=== PATIENT | female | born 1965 | race Caucasian/White ===

== ENCOUNTER 2018-07-14 10:50 | Emergency (ER) | payer OTHER ==
[2018-07-14] MEDS ORDERED: MORPHINE SULFATE 4 MG/ML SYRINGE IV STA (11:09)
[2018-07-14] MEDS ORDERED: SODIUM CHLORIDE 0.9% 500 ML IV STA (11:09)
--- NOTE | 2018-07-14 11:15 | ED ---
General Adult HPI - General Chief complaint: Abdominal Pain Stated complaint: Abd Pain Time Seen by Provider: 07/14/18 11:02 Source: patient Mode of arrival: wheelchair Limitations: no limitations - History of Present Illness Initial comments: 53-year-old female with no chronic medical problems presents for evaluation of sudden onset of lower abdominal pain and pain into her bilateral thighs. Patient states this began approximately 30 minutes prior to arrival. She states she had a normal bowel movement this morning. Denies any preceding symptoms. No vomiting. No fever or chills. Pain is moderate to severe. Past surgical history of section remotely. Patient is not on any daily medication. Denies pain into her lower legs. Pain is just in her proximal thighs and lower abdomen. - Related Data Allergies Allergy/AdvReac Type Severity Reaction Status Date / Time No Known Allergies Allergy Verified 07/14/18 10:57 Review of Systems ROS Statement: Those systems with pertinent positive or pertinent negative responses have been documented in the HPI. ROS Other: All systems not noted in ROS Statement are negative. Past Medical History Past Medical History: No Reported History History of Any Multi-Drug Resistant Organisms: None Reported Past Surgical History: Section Past Psychological History: No Psychological Hx Reported Smoking Status: Current every day smoker Past Alcohol Use History: Occasional Past Drug Use History: Marijuana General Exam Limitations: no limitations General appearance: alert, in no apparent distress Head exam: Present: atraumatic, normocephalic Eye exam: Present: normal appearance, PERRL, EOMI ENT exam: Present: normal exam Neck exam: Present: normal inspection. Absent: tenderness, meningismus Respiratory exam: Present: normal lung sounds bilaterally. Absent: respiratory distress Cardiovascular Exam: Present: normal rhythm, bradycardia GI/Abdominal exam: Present: soft, distended, tenderness (Very mild lower abdominal tenderness). Absent: guarding, rebound Extremities exam: Present: normal inspection, other (Bilateral femoral pulses 2+ , bilateral DP pulses present) Neurological exam: Present: alert, oriented X3, CN II-XII intact Skin exam: Present: warm, diaphoretic. Absent: cyanosis Course Vital Signs 07/14/18 07/14/18 07/14/18 10:51 11:14 12:29 Temperature 97.7 F Pulse Rate 50 L 74 Respiratory 22 16 Rate Blood Pressure 140/102 100/53 O2 Sat by Pulse 98 100 Oximetry - Reevaluation(s) Reevaluation #1: 07/14/18 14:04 On reevaluation, patient is feeling better, pain is nearly completely resolved. She is well-appearing with stable vitals. EKG Findings - EKG Comments: EKG Findings:: EKG: Sinus rhythm with low voltage QRS, rate of 76, MO interval 156, QRS duration 70, QTC 468, no ST segment elevation or depression Medical Decision Making - Medical Decision Making 53-year-old female presenting with sudden onset lower abdominal pain. Patient has minimal tenderness on exam. Distal pulses intact. Workup in the emergency department reveals normal CBC, normal CMP, normal lactic acid, urinalysis shows no signs of infection. After IV pain medication patient is feeling better. CT of the abdomen is obtained, only significant finding is a thickened endometrial stripe, this does not account for the patient's pain, no other acute findings. She will follow-up with her primary care physician, she is informed of the need for an outpatient uterine ultrasound. Diagnosis: Abdominal pain-resolved - Lab Data Result diagrams: 07/14/18 11:21 07/14/18 11:21 Lab Results 07/14/18 07/14/18 07/14/18 Range/Units 11:21 11:21 11:21 WBC 9.7 (3.8-10.6) k/uL RBC 4.18 (3.80-5.40) m/uL Hgb 13.5 (11.4-16.0) gm/dL Hct 42.1 (34.0-46.0) % MCV 100.7 H (80.0-100.0) fL MCH 32.4 (25.0-35.0) pg MCHC 32.2 (31.0-37.0) g/dL RDW 13.1 (11.5-15.5) % Plt Count 260 (150-450) k/uL Neutrophils % 58 % Lymphocytes % 28 % Monocytes % 8 % Eosinophils % 4 % Basophils % 1 % Neutrophils # 5.6 (1.3-7.7) k/uL Lymphocytes # 2.7 (1.0-4.8) k/uL Monocytes # 0.8 (0-1.0) k/uL Eosinophils # 0.4 (0-0.7) k/uL Basophils # 0.1 (0-0.2) k/uL PT (9.0-12.0) sec INR (<1.2) APTT (22.0-30.0) sec Sodium 139 (137-145) mmol/L Potassium 3.8 (3.5-5.1) mmol/L Chloride 106 (98-107) mmol/L Carbon Dioxide 26 (22-30) mmol/L Anion Gap 7 mmol/L BUN 14 (7-17) mg/dL Creatinine 0.65 (0.52-1.04) mg/dL Est GFR (CKD-EPI)AfAm >90 (>60 ml/min/1.73 sqM) Est GFR (CKD-EPI)NonAf >90 (>60 ml/min/1.73 sqM) Glucose 144 H (74-99) mg/dL Plasma Lactic Acid Parveen 1.5 (0.7-2.0) mmol/L Calcium 8.9 (8.4-10.2) mg/dL Total Bilirubin 0.3 (0.2-1.3) mg/dL AST 19 (14-36) U/L ALT 31 (9-52) U/L Alkaline Phosphatase 66 (38-126) U/L Total Protein 6.7 (6.3-8.2) g/dL Albumin 3.7 (3.5-5.0) g/dL Amylase 66 (30-110) U/L Lipase 57 (23-300) U/L Urine Color Urine Appearance (Clear) Urine pH (5.0-8.0) Ur Specific [place] (1.001-1.035) Urine Protein (Negative) Urine Glucose (UA) (Negative) Urine Ketones (Negative) Urine Blood (Negative) Urine Nitrite (Negative) Urine Bilirubin (Negative) Urine Urobilinogen (<2.0) mg/dL Ur Leukocyte Esterase (Negative) Urine RBC (0-5) /hpf Urine WBC (0-5) /hpf Ur Squamous Epith Cells (0-4) /hpf Urine Mucus (None) /hpf 07/14/18 07/14/18 Range/Units 11:21 12:42 WBC (3.8-10.6) k/uL RBC (3.80-5.40) m/uL Hgb (11.4-16.0) gm/dL Hct (34.0-46.0) % MCV (80.0-100.0) fL MCH (25.0-35.0) pg MCHC (31.0-37.0) g/dL RDW (11.5-15.5) % Plt Count (150-450) k/uL Neutrophils % % Lymphocytes % % Monocytes % % Eosinophils % % Basophils % % Neutrophils # (1.3-7.7) k/uL Lymphocytes # (1.0-4.8) k/uL Monocytes # (0-1.0) k/uL Eosinophils # (0-0.7) k/uL Basophils # (0-0.2) k/uL PT 9.9 (9.0-12.0) sec INR 1.0 (<1.2) APTT 22.8 (22.0-30.0) sec Sodium (137-145) mmol/L Potassium (3.5-5.1) mmol/L Chloride (98-107) mmol/L Carbon Dioxide (22-30) mmol/L Anion Gap mmol/L BUN (7-17) mg/dL Creatinine (0.52-1.04) mg/dL Est GFR (CKD-EPI)AfAm (>60 ml/min/1.73 sqM) Est GFR (CKD-EPI)NonAf (>60 ml/min/1.73 sqM) Glucose (74-99) mg/dL Plasma Lactic Acid Parveen (0.7-2.0) mmol/L Calcium (8.4-10.2) mg/dL Total Bilirubin (0.2-1.3) mg/dL AST (14-36) U/L ALT (9-52) U/L Alkaline Phosphatase (38-126) U/L Total Protein (6.3-8.2) g/dL Albumin (3.5-5.0) g/dL Amylase (30-110) U/L Lipase (23-300) U/L Urine Color Light Yellow Urine Appearance Clear (Clear) Urine pH 6.5 (5.0-8.0) Ur Specific [place] 1.048 H (1.001-1.035) Urine Protein Negative (Negative) Urine Glucose (UA) Negative (Negative) Urine Ketones Negative (Negative) Urine Blood Trace H (Negative) Urine Nitrite Negative (Negative) Urine Bilirubin Negative (Negative) Urine Urobilinogen <2.0 (<2.0) mg/dL Ur Leukocyte Esterase Negative (Negative) Urine RBC 1 (0-5) /hpf Urine WBC 2 (0-5) /hpf Ur Squamous Epith Cells 2 (0-4) /hpf Urine Mucus Rare H (None) /hpf Disposition Clinical Impression: Abdominal pain Disposition: HOME SELF-CARE Condition: Good Instructions: Abdominal Pain (ED) Is patient prescribed a controlled substance at d/c from ED?: No Referrals: None,Stated [Primary Care Provider] - 1-2 days José Miguel Chan MD [REFERRING] - 1-2 days Time of Disposition: 14:07
[2018-07-14 11:44] LABS: Basophils # (A) 0.1 k/uL (0-0.2); Basophils % (A) 1 %; Eosinophils # (A) 0.4 k/uL (0-0.7); Eosinophils % (A) 4 %; HCT 42.1 % (34.0-46.0); HGB 13.5 gm/dL (11.4-16.0); Lymphocytes # (A) 2.7 k/uL (1.0-4.8); Lymphocytes % (A) 28 %; MCH 32.4 pg (25.0-35.0); MCHC 32.2 g/dL (31.0-37.0); MCV 100.7 fL (80.0-100.0); Mean Platelet Volume 7.1; Monocytes # (A) 0.8 k/uL (0-1.0); Monocytes % (A) 8 %; Neutrophils # (A) 5.6 k/uL (1.3-7.7); Neutrophils % (A) 58 %; Platelet Count 260 k/uL (150-450); RBC 4.18 m/uL (3.80-5.40); RDW 13.1 % (11.5-15.5); WBC 9.7 k/uL (3.8-10.6)
[2018-07-14 11:48] LABS: Partial Thromboplastin Time 22.8 sec (22.0-30.0); Prothrombin Time 9.9 sec (9.0-12.0)
[2018-07-14 11:52] LABS: ALT 31 U/L (9-52); AST 19 U/L (14-36); Albumin 3.7 g/dL (3.5-5.0); Alkaline Phosphatase 66 U/L (38-126); Amylase 66 U/L (30-110); Anion Gap 7 mmol/L; Blood Urea Nitrogen 14 mg/dL (7-17); Calcium 8.9 mg/dL (8.4-10.2); Carbon Dioxide 26 mmol/L (22-30); Chloride 106 mmol/L (98-107); Glucose 144 mg/dL (74-99); Lipase 57 U/L (23-300); Potassium 3.8 mmol/L (3.5-5.1); Sodium 139 mmol/L (137-145); Total Bilirubin 0.3 mg/dL (0.2-1.3); Total Protein 6.7 g/dL (6.3-8.2)
--- NOTE | 2018-07-14 12:09 | CT ---
EXAMINATION TYPE: CT abdomen pelvis w con DATE OF EXAM: 07/14/2018 REFERENCE: NONE HISTORY: abdominal pain HISTORY: pain REFERENCE: NONE CT DLP: 649.6 mGy Automated exposure control for dose reduction was used. TECHNIQUE: Helical acquisition through the abdomen and pelvis was obtained following the oral ingesti on of without Oral Contrast and following intravenous administration of 100 mL of Isovue 300. The shereen a was reformatted in axial, coronal and sagittal projections. FINDINGS: Visualized portions of the lungs are clear. There is no pleural or pericardial fluid. The heart is not enlarged. Within the abdomen, the liver, spleen and gallbladder are normal. Both adrenal glands are normal. Both kidneys demonstrate function and appear morphologically normal. The pancreas is unremarkable. There is no significant retroperitoneal, iliac or inguinal adenopathy. The bladder is unremarkable. Endometrial stripe is thickened measuring 3 cm. The ovaries are unremarkable. There is no significant diverticular change and there is no radiographic evidence of diverticulitis. The appendix is unremarkable. Small bowel loops are of normal caliber. There is no free fluid and no free air. There is degenerative disc disease and disc space loss at L5-S1. No other bony lesion is seen. IMPRESSION: 1. WIDENED ENDOMETRIAL STRIPE. A NONEMERGENT PELVIC ULTRASOUND BE SUGGESTED. 2. DEGENERATIVE CHANGE WITHIN THE LUMBAR SPINE.
[2018-07-14] MEDS ORDERED: MORPHINE SULFATE 4 MG/ML SYRINGE IVP STA (12:26)
[2018-07-14 12:30] VITALS: RESP 16
[2018-07-14 13:07] LABS: Appearance,Urine Clear (Clear); Bilirubin,Urine Negative (Negative); Blood,Urine Trace (Negative); Color,Urine Light Yellow; Glucose,Urine (UA) Negative (Negative); Ketones,Urine Negative (Negative); Leukocyte Esterase,Urine Negative (Negative); Mucus,Urine Rare /hpf; Nitrite,Urine Negative (Negative); PH, Urine 6.5 (5.0-8.0); Protein,Urine Negative (Negative); RBC,Urine 1 /hpf (0-5); Squamous Epithelial Cell,Urine 2 /hpf (0-4); Urobilinogen,Urine <2.0 mg/dL (<2.0); WBC,Urine 2 /hpf (0-5)
[2018-07-14 13:11] LABS: Specific Gravity,Urine 1.048 (1.001-1.035)
[2018-07-14 14:27] VITALS: BP 120/66; PULSE 77; TEMP 98
== END 2018-07-14 14:20 | disposition home or self-care (01) ==
LOC: EC 10:50
DX: R10.30 Lower abdominal pain, unspecified (principal); M79.651 Pain in right thigh; M79.652 Pain in left thigh; R93.8 Abnormal findings on diagnostic imaging of other specified body structures; F17.200 Nicotine dependence, unspecified, uncomplicated
CPT/HCPCS: 36415; 93005; 80053; 82150; 83605; 83690; 85025; 85610; 85730; 81001; 74177; 99284; 96374; 96376; J2270; Q9967

== ENCOUNTER → 2018-08-21 | Outpatient (CLI) | payer OTHER ==
--- NOTE | 2018-08-22 06:49 | US ---
EXAMINATION TYPE: US transvaginal DATE OF EXAM: 08/21/2018 COMPARISON: CT abdomen pelvis July 14, 2018 CLINICAL HISTORY: N93.[address] x 1.5 months ago. TECHNIQUE: Transvaginal (TV). Date of LMP: 07/29/2018, EXAM MEASUREMENTS: Uterus: 8.6 x 5.4 x 5.2 cm Endometrial Stripe: 0.9 cm Right Ovary: 2.3 x 1.3 x 1.7 cm Left Ovary: 2.7 x 2.2 x 1.7 cm 1. Uterus: Anteverted Heterogenous. Anterior midline cystic appearing lesion = 0.3 x 0.4 x 0.3 cm 2. Endometrium: wnl 3. Right Ovary: follicles seen 4. Left Ovary: dominant follicle 5. Bilateral Adnexa: Prominent vessels seen in adnexa 6. Posterior cul-de-sac: no free fluid Heterogeneous anteverted uterus is present. Technologist paiz 3 mm myometrial simple appearing cysts anteriorly. No free fluid is seen in pelvis. Both ovaries are seen. No suspicious adnexal lesions are present. Prominent left adnexal or ovarian v eins are redemonstrated IMPRESSION: No suspicious thickening of endometrium. Patient noted premenopausal likely accounting fo r interval change from CT. Prominent left-sided draining ovarian veins redemonstrated. Cannot exclude pelvic congestion syndrome.
--- NOTE | 2018-08-22 08:58 | MM ---
Reason for exam: screening (asymptomatic). Baseline mammogram. History: Took hormonal contraceptives for 6 months beginning at age 20. Physical Findings: Nurse did not find any significant physical abnormalities on exam. MG Screening Mammo w CAD Bilateral CC and MLO view(s) were taken. The breast tissue is heterogeneously dense. This may lower the sensitivity of mammography. No suspicious calcifications are seen. Focal asymmetry upper left breast. These results were verbally communicated with the patient and result sheet given to the patient on 08/21/18. ASSESSMENT: Incomplete: need additional imaging evaluation, BI-RAD 0 RECOMMENDATION: Special view mammogram of the left breast.
--- NOTE | 2018-08-22 08:59 | MM ---
Reason for exam: additional evaluation requested from abnormal screening. History: Took hormonal contraceptives for 6 months beginning at age 20. Physical Findings: Breast exam preformed at baseline screening. MG Work Up Mamm w CAD LT Spot compression CC, spot compression MLO, and LM view(s) were taken of the left breast. The breast tissue is heterogeneously dense. This may lower the sensitivity of mammography. There is no discrete abnormality including area of concern. These results were verbally communicated with the patient and result sheet given to the patient on 08/21/18. ASSESSMENT: Negative, BI-RAD 1 RECOMMENDATION: Return to routine screening mammogram schedule for both breasts.
== END | disposition home or self-care (01) ==
LOC: RADMAMWWP 14:43
PROVIDERS: ATTEND Family Medicine
DX: Z12.31 Encounter for screening mammogram for malignant neoplasm of breast (principal); R92.8 Other abnormal and inconclusive findings on diagnostic imaging of breast; N93.8 Other specified abnormal uterine and vaginal bleeding
CPT/HCPCS: 76830; 77065; 77067

== ENCOUNTER → 2018-08-30 | Day surgery (SDC) | payer OTHER ==
[2018-08-21 12:38] VITALS: BMI 27.4
[~2018-08-30] MED LIST: LACTATED RINGERS 1,000 ML IV SCH; LIDOCAINE 1% 20 ML VIAL (10MG/ML) FOR IV START INTRADERMA PRN; LIDOCAINE 1% INJ 10MG/ML (20 ML MDV) ONE; PROPOFOL 10 MG/ML 20 ML VIAL IV ONE
[2018-08-30 10:08] VITALS: TEMP 97.8
--- NOTE | 2018-08-30 10:40 | P.GSHP ---
History of Present Illness H&P Date: 08/30/18 Chief Complaint: Screening colonoscopy This is a 53-year-old female who presents today for screening colonoscopy. Patient denies a significant GI complaints. Past Medical History Past Medical History: No Reported History History of Any Multi-Drug Resistant Organisms: None Reported Past Surgical History: Section Additional Past Surgical History / Comment(s): teeth extraction Past Anesthesia/Blood Transfusion Reactions: No Reported Reaction Smoking Status: Current every day smoker - Past Family History Father Family Medical History: Cancer Mother Family Medical History: Cancer Medications and Allergies Home Medications Medication Instructions Recorded Confirmed Type No Known Home Medications 08/21/18 08/21/18 History Allergies Allergy/AdvReac Type Severity Reaction Status Date / Time No Known Allergies Allergy Verified 08/21/18 12:34 Surgical - Exam Vital Signs Temp Pulse Resp BP Pulse Ox 97.8 F 83 16 109/71 98 08/30/18 10:02 08/30/18 10:02 08/30/18 10:02 08/30/18 10:02 08/30/18 10:02 - General well developed, well nourished - Eyes PERRL - ENT normal pinna - Neck no masses - Respiratory normal expansion - Cardiovascular Rhythm: regular - Abdomen Abdomen: soft, non tender Assessment and Plan Assessment: We'll perform screening colonoscopy.
--- NOTE | 2018-08-30 10:58 | P.OP ---
Date of Procedure: 08/30/18 Preoperative Diagnosis: Screening colonoscopy Postoperative Diagnosis: Tortuous colon Normal colon Procedure(s) Performed: Colonoscopy Anesthesia: MAC Surgeon: Frank Brock Pathology: none sent Condition: stable Disposition: PACU Description of Procedure: Patient's placed on the endoscopy table in the lateral position. She received IV sedation. Digital rectal exam was performed which revealed no abnormalities. The flexible colonoscope was then placed patient anus passed rotator colon. The colon was quite tortuous. The cecum could not be visualized with tortuous the bowel. This point scope withdrawn. In the ascending colon, transverse colon and descending colon appeared normal. The sigmoid colon and rectum was normal. The scope was withdrawn for patient.
[2018-08-30 11:25] VITALS: BP 110/76; PULSE 80; RESP 18
== END | disposition home or self-care (01) ==
LOC: ORWHC2ENDO 09:48
PROVIDERS: ATTEND Surgery
DX: Z12.11 Encounter for screening for malignant neoplasm of colon (principal); F17.200 Nicotine dependence, unspecified, uncomplicated; Q43.8 Other specified congenital malformations of intestine
CPT/HCPCS: 81025; 45378; J2001; J2704

== ENCOUNTER 2021-03-28 08:54 | Observation (INO) | payer OTHER ==
[2021-03-28] MEDS ORDERED: KETOROLAC 15 MG/ML 1 ML VIAL IVP STA (09:25)
--- NOTE | 2021-03-28 09:31 | ED ---
General Adult HPI - General Chief complaint: Skin/Abscess/Foreign Body Stated complaint: foreign body rt arm Time Seen by Provider: 03/28/21 09:03 Source: patient, RN notes reviewed Mode of arrival: ambulatory Limitations: no limitations - History of Present Illness Initial comments: 55-year-old female presents to the emergency room for a chief clinical left arm and hand pain. Patient reports that last night she was carrying wood and a piece punctured her left forearm. States it was about an inch and a half long and she had to pull it out. Patient states that this morning when she woke up her hand was painful. States it is painful to open her hand and to extend her wrist. Patient states it is red and swollen around the area. Patient denies noticing any fevers.Patient has no other complaints at this time including shortness of breath, chest pain, abdominal pain, nausea or vomiting, headache, or visual changes. - Related Data Home Medications Medication Instructions Recorded Confirmed Multivitamins, Thera [Multivitamin 1 tab PO DAILY 03/28/21 03/28/21 (formulary)] Allergies Allergy/AdvReac Type Severity Reaction Status Date / Time No Known Allergies Allergy Verified 03/28/21 09:24 Review of Systems ROS Statement: Those systems with pertinent positive or pertinent negative responses have been documented in the HPI. ROS Other: All systems not noted in ROS Statement are negative. Past Medical History Past Medical History: No Reported History History of Any Multi-Drug Resistant Organisms: None Reported Past Surgical History: Section Additional Past Surgical History / Comment(s): teeth extraction Past Anesthesia/Blood Transfusion Reactions: No Reported Reaction Past Psychological History: No Psychological Hx Reported Smoking Status: Current every day smoker Past Alcohol Use History: Occasional Past Drug Use History: Marijuana - Past Family History Father Family Medical History: Cancer Mother Family Medical History: Cancer General Exam Limitations: no limitations General appearance: alert, in no apparent distress Head exam: Present: atraumatic, normocephalic, normal inspection Eye exam: Present: normal appearance, PERRL, EOMI. Absent: scleral icterus, conjunctival injection, periorbital swelling ENT exam: Present: normal exam, mucous membranes moist Neck exam: Present: normal inspection. Absent: tenderness, meningismus, lymphadenopathy Respiratory exam: Present: normal lung sounds bilaterally. Absent: respiratory distress, wheezes, rales, rhonchi, stridor Cardiovascular Exam: Present: regular rate, normal rhythm, normal heart sounds. Absent: systolic murmur, diastolic murmur, rubs, gallop, clicks Extremities exam: Present: normal capillary refill (Capillary refill less than 2 seconds, radial pulse 2+ left upper extremity), other (Distal volar forearm does have mild edema with erythema. Patient unable to fully open the left hand secondary to pain. No streaking redness. I do not see obvious foreign body. compartments are soft.) Course Vital Signs 03/28/21 03/28/21 03/28/21 08:55 11:00 12:21 Temperature 98.4 F 97.7 F Pulse Rate 75 88 74 Respiratory 18 102 H 18 Rate Blood Pressure 126/82 102/49 108/71 O2 Sat by Pulse 97 99 98 Oximetry Medical Decision Making - Medical Decision Making Vitals are stable. Patient does have some minimal edema overlying the puncture wound. She has pain with extension of the first 3 digits of the left hand. No pain with palpation of the left hand. Patient reports that she did not have pain with extension last night. CBC CMP unremarkable. However CRP is slightly elevated at 10. X-ray of the left forearm was unremarkable, no obvious foreign body. At this time there is concern that there could be an early infection seated to the flexor tendon given she is having pain with extension of the hand. I did discuss this case with orthopedics who are agreeable to admitting with IV antibiotics and nothing by mouth after midnight. Request to keep patient nothing by mouth after midnight. Also request medicine admission if possible. - Lab Data Result diagrams: 03/28/21 10:10 03/28/21 10:10 Lab Results 03/28/21 03/28/21 03/28/21 Range/Units 10:10 10:10 10:10 WBC 7.9 (3.8-10.6) k/uL RBC 4.05 (3.80-5.40) m/uL Hgb 14.3 (11.4-16.0) gm/dL Hct 40.9 (34.0-46.0) % MCV 101.0 H (80.0-100.0) fL MCH 35.4 H (25.0-35.0) pg MCHC 35.0 (31.0-37.0) g/dL RDW 11.8 (11.5-15.5) % Plt Count 244 (150-450) k/uL MPV 7.8 Neutrophils % 65 % Lymphocytes % 21 % Monocytes % 8 % Eosinophils % 5 % Basophils % 1 % Neutrophils # 5.1 (1.3-7.7) k/uL Lymphocytes # 1.6 (1.0-4.8) k/uL Monocytes # 0.6 (0-1.0) k/uL Eosinophils # 0.4 (0-0.7) k/uL Basophils # 0.0 (0-0.2) k/uL PT 10.2 (9.0-12.0) sec INR 0.9 (<1.2) APTT 24.3 (22.0-30.0) sec Sodium 141 (137-145) mmol/L Potassium 4.4 (3.5-5.1) mmol/L Chloride 109 H (98-107) mmol/L Carbon Dioxide 28 (22-30) mmol/L Anion Gap 4 mmol/L BUN 15 (7-17) mg/dL Creatinine 0.60 (0.52-1.04) mg/dL Est GFR (CKD-EPI)AfAm >90 (>60 ml/min/1.73 sqM) Est GFR (CKD-EPI)NonAf >90 (>60 ml/min/1.73 sqM) Glucose 101 H (74-99) mg/dL Plasma Lactic Acid Parveen (0.7-2.0) mmol/L Calcium 9.3 (8.4-10.2) mg/dL Total Bilirubin 0.5 (0.2-1.3) mg/dL AST 28 (14-36) U/L ALT 19 (4-34) U/L Alkaline Phosphatase 76 (38-126) U/L C-Reactive Protein 1.0 H (<1.0) mg/dL Total Protein 6.5 (6.3-8.2) g/dL Albumin 3.9 (3.5-5.0) g/dL 03/28/21 Range/Units 10:10 WBC (3.8-10.6) k/uL RBC (3.80-5.40) m/uL Hgb (11.4-16.0) gm/dL Hct (34.0-46.0) % MCV (80.0-100.0) fL MCH (25.0-35.0) pg MCHC (31.0-37.0) g/dL RDW (11.5-15.5) % Plt Count (150-450) k/uL MPV Neutrophils % % Lymphocytes % % Monocytes % % Eosinophils % % Basophils % % Neutrophils # (1.3-7.7) k/uL Lymphocytes # (1.0-4.8) k/uL Monocytes # (0-1.0) k/uL Eosinophils # (0-0.7) k/uL Basophils # (0-0.2) k/uL PT (9.0-12.0) sec INR (<1.2) APTT (22.0-30.0) sec Sodium (137-145) mmol/L Potassium (3.5-5.1) mmol/L Chloride (98-107) mmol/L Carbon Dioxide (22-30) mmol/L Anion Gap mmol/L BUN (7-17) mg/dL Creatinine (0.52-1.04) mg/dL Est GFR (CKD-EPI)AfAm (>60 ml/min/1.73 sqM) Est GFR (CKD-EPI)NonAf (>60 ml/min/1.73 sqM) Glucose (74-99) mg/dL Plasma Lactic Acid Parveen 0.9 (0.7-2.0) mmol/L Calcium (8.4-10.2) mg/dL Total Bilirubin (0.2-1.3) mg/dL AST (14-36) U/L ALT (4-34) U/L Alkaline Phosphatase (38-126) U/L C-Reactive Protein (<1.0) mg/dL Total Protein (6.3-8.2) g/dL Albumin (3.5-5.0) g/dL Disposition Clinical Impression: Puncture wound, Hand pain, left Disposition: ADMITTED IP TO THIS HOSP Is patient prescribed a controlled substance at d/c from ED?: No Referrals: None,Stated [Primary Care Provider] - 1-2 days Time of Disposition: 12:36
[2021-03-28] MEDS: SODIUM CHLORIDE 0.9% 500 ML 500 ML IV SCH ×2 (10:46→11:26)
[2021-03-28 10:49] LABS: Basophils % (A) 1 %; Eosinophils # (A) 0.4 k/uL (0-0.7); Eosinophils % (A) 5 %; HCT 40.9 % (34.0-46.0); HGB 14.3 gm/dL (11.4-16.0); Lymphocytes # (A) 1.6 k/uL (1.0-4.8); Lymphocytes % (A) 21 %; MCH 35.4 pg (25.0-35.0); Mean Platelet Volume 7.8; Monocytes # (A) 0.6 k/uL (0-1.0); Monocytes % (A) 8 %; Neutrophils # (A) 5.1 k/uL (1.3-7.7); Neutrophils % (A) 65 %; Platelet Count 244 k/uL (150-450); RBC 4.05 m/uL (3.80-5.40); RDW 11.8 % (11.5-15.5); WBC 7.9 k/uL (3.8-10.6)
[2021-03-28 11:02] LABS: INR 0.9 (<1.2); Partial Thromboplastin Time 24.3 sec (22.0-30.0); Prothrombin Time 10.2 sec (9.0-12.0)
--- NOTE | 2021-03-28 11:05 | XR ---
EXAMINATION TYPE: XR forearm RT DATE OF EXAM: 03/28/2021 CLINICAL HISTORY: Puncture injury with pain. TECHNIQUE: Two views of the right forearm are obtained. COMPARISON: None. FINDINGS: There is no acute fracture or dislocation seen in the right radius or ulna. The right elb ow and wrist joints appear within normal limits. There is peripheral IV catheter along the volar surf justice proximal to mid forearm level. No additional radiodense soft tissue foreign body clearly seen. IMPRESSION: As above.
[2021-03-28 11:12] LABS: ALT 19 U/L (4-34); AST 28 U/L (14-36); African American GFR (CKD) >90 (>60 ml/min/1.73 sqM); Albumin 3.9 g/dL (3.5-5.0); Alkaline Phosphatase 76 U/L (38-126); Anion Gap 4 mmol/L; Blood Urea Nitrogen 15 mg/dL (7-17); Calcium 9.3 mg/dL (8.4-10.2); Carbon Dioxide 28 mmol/L (22-30); Chloride 109 mmol/L (98-107); Glucose 101 mg/dL (74-99); Non-African American GFR(CKD) >90 (>60 ml/min/1.73 sqM); Potassium 4.4 mmol/L (3.5-5.1); Sodium 141 mmol/L (137-145); Total Bilirubin 0.5 mg/dL (0.2-1.3); Total Protein 6.5 g/dL (6.3-8.2)
[2021-03-28] MEDS ORDERED: VANCOMYCIN IV PER PHARMACY 1 EACH MISC MISCELLANE PRN (12:33)
[2021-03-28] MEDS ORDERED: PIPERACILLIN-TAZOBACTAM 3.375 GM in SODIUM CHLORIDE 0.9% 100 ML IVPB STA (12:33)
[2021-03-28] MEDS ORDERED: MORPHINE SULFATE 4 MG/ML SYRINGE IV PRN (12:41)
[2021-03-28] MEDS ORDERED: ONDANSETRON 4 MG/2 ML VIAL IVP PRN (12:41)
[2021-03-28] MEDS ORDERED: NALOXONE 0.4 MG/ML 1 ML VIAL IV PRN (12:41)
[2021-03-28] MEDS: SODIUM CHLORIDE 0.9% 1,000 ML IV SCH ×2 (12:56→21:55)
[2021-03-28] MEDS ORDERED: VANCOMYCIN 1,500 MG in SODIUM CHLORIDE 0.9% 250 ML IVPB ONE (13:15)
[2021-03-28] MEDS ORDERED: KETOROLAC 15 MG/ML 1 ML VIAL IVP PRN (14:27)
--- NOTE | 2021-03-28 14:30 | P.HPIM ---
History of Present Illness Patient is a pleasant 55-year-old female came in with pain and redness possible cellulitis and mild abscess in the left forearm plantar aspect after a puncture wound from carrying wood and this happened yesterday. Patient is comparing of moderate pain in that area. Patient was started on vancomycin. Patient was given a dose of Zosyn as well. Orthopedic surgery was consulted. Review of Systems REVIEW OF SYSTEMS: CONSTITUTIONAL: No fever, no malaise, no fatigue. HEENT: No recent visual problems or hearing problems. Denied any sore throat. CARDIOVASCULAR: No chest pain, orthopnea, PND, no palpitations, no syncope. PULMONARY: No shortness of breath, no cough, no hemoptysis. GASTROINTESTINAL: No diarrhea, no nausea, no vomiting, no abdominal pain. NEUROLOGICAL: No headaches, no weakness, no numbness. HEMATOLOGICAL: Denies any bleeding or petechiae. GENITOURINARY: Denies any burning micturition, frequency, or urgency. MUSCULOSKELETAL/RHEUMATOLOGICAL: Denies any joint pain, swelling, or any muscle pain. ENDOCRINE: Denies any polyuria or polydipsia. The rest of the 14-point review of systems is negative. Past Medical History Past Medical History: No Reported History History of Any Multi-Drug Resistant Organisms: None Reported Past Surgical History: Section Additional Past Surgical History / Comment(s): teeth extraction Past Anesthesia/Blood Transfusion Reactions: No Reported Reaction Past Psychological History: No Psychological Hx Reported Smoking Status: Current every day smoker Past Alcohol Use History: Occasional Past Drug Use History: Marijuana - Past Family History Father Family Medical History: Cancer Mother Family Medical History: Cancer Medications and Allergies Home Medications Medication Instructions Recorded Confirmed Type Multivitamins, Thera [Multivitamin 1 tab PO DAILY 03/28/21 03/28/21 History (formulary)] Allergies Allergy/AdvReac Type Severity Reaction Status Date / Time No Known Allergies Allergy Verified 03/28/21 09:24 Physical Exam Vitals: Vital Signs Temp Pulse Resp BP Pulse Ox 03/28/21 13:05 78 16 110/83 99 03/28/21 12:21 74 18 108/71 98 03/28/21 11:00 97.7 F 88 102 H 102/49 99 03/28/21 08:55 98.4 F 75 18 126/82 97 Intake and Output 03/27/21 03/28/21 03/28/21 22:59 06:59 14:59 Other: Weight 72.575 kg PHYSICAL EXAMINATION: GENERAL: The patient is alert and oriented x3, not in any acute distress. Well developed, well nourished. HEENT: Pupils are round and equally reacting to light. EOMI. No scleral icterus. No conjunctival pallor. Normocephalic, atraumatic. No pharyngeal erythema. No thyromegaly. CARDIOVASCULAR: S1 and S2 present. No murmurs, rubs, or gallops. PULMONARY: Chest is clear to auscultation, no wheezing or crackles. ABDOMEN: Soft, nontender, nondistended, normoactive bowel sounds. No palpable organomegaly. MUSCULOSKELETAL: No joint swelling or deformity. EXTREMITIES: No cyanosis, clubbing, or pedal edema. NEUROLOGICAL: Gross neurological examination did not reveal any focal deficits. SKIN: Area of redness with a possible small abscess in the mid 4 forearm plantar aspect. Results CBC & Chem 7: 03/28/21 10:10 03/28/21 10:10 Labs: Abnormal Lab Results - Last 24 Hours (Table) 03/28/21 03/28/21 Range/Units 10:10 10:10 MCV 101.0 H (80.0-100.0) fL MCH 35.4 H (25.0-35.0) pg Chloride 109 H (98-107) mmol/L Glucose 101 H (74-99) mg/dL C-Reactive Protein 1.0 H (<1.0) mg/dL Assessment and Plan Plan: Cellulitis,abscess of the left forearm secondary to puncture wound, patient was started on vancomycin which should cover staph and strep. Continue with IV fluids -Nicotine use: Counseling was provided Heparin GI prophylaxis Pepcid - DVT prophylaxis early ambulation
[2021-03-28] MEDS: VANCOMYCIN 1,250 MG in SODIUM CHLORIDE 0.9% 250 ML IVPB SCH (21:54)
[2021-03-28] MEDS: FAMOTIDINE 20 MG TAB PO SCH (21:54)
[2021-03-29] MEDS: SODIUM CHLORIDE 0.9% 1,000 ML IV SCH (06:00)
[2021-03-29] MEDS: VANCOMYCIN 1,250 MG in SODIUM CHLORIDE 0.9% 250 ML IVPB SCH (06:07)
[2021-03-29 08:08] VITALS: BP 112/73; PULSE 64; RESP 16; TEMP 98.4
--- NOTE | 2021-03-29 09:15 | P.CNOR ---
History of Present Illness - HPI Consult date: 03/29/21 History of present illness: This is a 55-year-old female who is admitted for an infection from a puncture wound to the right forearm. Patient states that she got a piece of wood stuck in her right arm on 03/27/2021, but was able to remove it. Patient states that the next day she noticed pain and difficulty with range of motion of the right hand. Patient states that today she has improvement in her pain and range of motion of the fingers of the right hand. Patient denies any fever/chills, drainage from the wound, numbness, weakness or tingling. Patient denies any significant past medical history. Review of Systems See HPI. Past Medical History Past Medical History: No Reported History History of Any Multi-Drug Resistant Organisms: None Reported Past Surgical History: Section Additional Past Surgical History / Comment(s): teeth extraction Past Anesthesia/Blood Transfusion Reactions: No Reported Reaction Past Psychological History: No Psychological Hx Reported Smoking Status: Current every day smoker Past Alcohol Use History: Occasional Additional Past Alcohol Use History / Comment(s): has smoked for over 30 years; 1-2 ppd Past Drug Use History: Marijuana Additional Drug Use History / Comment(s): occ.; instructed to refrain for at least 24 hours prior to procedure - Past Family History Father Family Medical History: Cancer Mother Family Medical History: Cancer Medications and Allergies Home Medications Medication Instructions Recorded Confirmed Type Multivitamins, Thera [Multivitamin 1 tab PO DAILY 03/28/21 03/28/21 History (formulary)] Allergies Allergy/AdvReac Type Severity Reaction Status Date / Time No Known Allergies Allergy Verified 03/28/21 09:24 Physical Examination On exam patient is resting comfortably distress. Patient is alert and oriented 3. There is a small puncture wound to the volar aspect of the mid right forearm. There is mild tenderness to palpation in this area, but no surrounding erythema, fluctuance, drainage or warmth. Patient has good range of motion of the fingers of the right hand without pain or difficulty. There is no swelling. Sensation is intact. Neurovascular status circulatory status are intact. Results X-rays of the right forearm dated 03/28/2021 are negative for any fracture, dislocation or foreign body. - Labs Labs: Abnormal Lab Results - Last 24 Hours (Table) 03/28/21 03/28/21 Range/Units 10:10 10:10 MCV 101.0 H (80.0-100.0) fL MCH 35.4 H (25.0-35.0) pg Chloride 109 H (98-107) mmol/L Glucose 101 H (74-99) mg/dL C-Reactive Protein 1.0 H (<1.0) mg/dL H & H 03/28/21 Range/Units 10:10 Hgb 14.3 (11.4-16.0) gm/dL Hct 40.9 (34.0-46.0) % Coagulation 03/28/21 Range/Units 10:10 INR 0.9 (<1.2) Result Diagrams: 03/28/21 10:10 03/28/21 10:10 Assessment and Plan (1) Right hand pain Current Visit: Yes Status: Acute Code(s): M79.641 - PAIN IN RIGHT HAND SNOMED Code(s): 22319622 (2) Puncture wound Current Visit: Yes Status: Acute Code(s): T14.8XXA - OTHER INJURY OF UNSPECIFIED BODY REGION, INITIAL ENCOUNTER SNOMED Code(s): 043278650 Plan: 1. Patient reports improvement in her symptoms today after being on IV antibiotics. Patient is afebrile and her white blood cell count is normal. 2. No surgical intervention is planned. Recommend rest, elevation and warm compresses. Recommend that patient be discharged home today on oral antibiotics. Patient is to follow-up with [facility] on 04/01/[facility]21. All questions are answered and patient is receptive to this plan.
[2021-03-29] MEDS: FAMOTIDINE 20 MG TAB PO SCH (09:52)
--- NOTE | 2021-03-29 16:35 | P.DS ---
Providers Date of admission: 03/28/21 12:35 Expected date of discharge: 03/29/21 Attending physician: Cathryn Rodríguez Consults: 03/28/21 12:42 Consult Physician Routine Consulting Provider: Lion Monzon Consult Reason/Comments: concern for flexor tendon infection Do you want consulting provider notified?: Yes Primary care physician: Stated None Hospital Course: Final diagnosis -Cellulitis, abscess of the right forearm secondary to puncture wound -Nicotine use: Counseling was provided -GI prophylaxis -DVT prophylaxis -Full code Discharge disposition Patient is being discharged in a stable condition with guarded prognosis to home. Patient will follow-up with Dr. Chan in the outpatient setting upon discharge. Patient is to follow-up with orthopedics scheduled for this Sunday Dr. Monzon in the clinic. Will continue on oral Keflex 4 times daily for the next 10 days. Total time taken is greater than 35 minutes. Hospital course This is a 55-year-old female was recently admitted with right arm puncture wound from [facility] and was being closely monitored. Patient was initially started on Zosyn along with vancomycin and evaluated by orthopedics recommending close outpatient follow-up in the clinic this Sunday and continued on Keflex 500 mg 4 times daily for the next 10 days. Patient denies any tingling numbness and has full functionality in the right upper extremity. Currently no reports of chest pain, shortness of breath, or palpitations. Patient is afebrile. No reports of nausea or vomiting and patient is tolerating diet. Patient will be discharged home today. On exam vital signs are stable. Cardio S1, S2 are muffled. Respiratory system shows diminished breath sounds at the bases with no wheezing or rhonchi noted. Abdomen is soft and nontender. Nervous system shows no focal deficits. Please refer to medication reconciliation sheet for a list of medications. Patient Condition at Discharge: Stable Plan - Discharge Summary Discharge Rx Participant: No New Discharge Prescriptions: New Cephalexin [Keflex] 500 mg PO Q6H 10 Days #40 cap traMADol HCl [Ultram] 50 mg PO Q6HR PRN 3 Days #12 tab PRN Reason: Pain Continue Multivitamins, Thera [Multivitamin (formulary)] 1 tab PO DAILY Discharge Medication List Multivitamins, Thera [Multivitamin (formulary)] 1 tab PO DAILY 03/28/21 [History] Cephalexin [Keflex] 500 mg PO Q6H 10 Days #40 cap 03/29/21 [Rx] traMADol HCl [Ultram] 50 mg PO Q6HR PRN 3 Days #12 tab 03/29/21 [Rx] Follow up Appointment(s)/Referral(s): José Miguel Chan MD [REFERRING] - 1-2 Days Lion Monzon DO [Doctor of Osteopathic Medicine] - 04/01/21 1:00 pm (Please arrive 15 minutes before appointment time . Bring photo ID and insurance card ) Activity/Diet/Wound Care/Special Instructions: Recommend rest, elevation and warm compresses to the right forearm. Please follow-up with [facility] on 04/01/2021 and call with any questions or concerns, . Activity Limited until follow-up Excuse from work until orthopedics follow-up Continue with antibiotics until finished Continue current diet Discharge Disposition: HOME SELF-CARE
[2021-03-29] MEDS ORDERED: VANCOMYCIN TROUGH DUE 1 EACH MISC MISCELLANE ONE (21:00)
== END 2021-03-29 12:35 | disposition home or self-care (01) ==
LOC: EC 08:54 → 6NMEDSUR 12:35
PROVIDERS: ADMIT Internal Medicine; ATTEND Internal Medicine
DX: L03.113 Cellulitis of right upper limb (principal); L02.413 Cutaneous abscess of right upper limb; S51.831A Puncture wound without foreign body of right forearm, initial encounter; W45.8XXA Other foreign body or object entering through skin, initial encounter; F17.200 Nicotine dependence, unspecified, uncomplicated; Z20.822 Contact with and (suspected) exposure to COVID-19; Z98.891 History of uterine scar from previous surgery; Z80.9 Family history of malignant neoplasm, unspecified
CPT/HCPCS: 96366 ×3; 96375 ×2; 96365; 99284; 36415; 80053; 83605; 85025; 85610; 85730; 86140; 87040; 87635; 73090; G0378 ×2; J2543; J3370 ×2; J2270; J1885

== ENCOUNTER → 2022-08-16 | Outpatient (CLI) | payer OTHER ==
[2022-08-16 22:50] LABS: HCT 39.6 % (37.2-46.3); HGB 12.6 g/dL (12.0-15.0); MCH 32.6 pg (27.0-32.0); MCHC 31.8 g/dL (32.0-37.0); MCV 102.3 fL (80.0-97.0); Mean Platelet Volume 9.8 fL (9.5-12.2); NRBC Per 100 WBC 0 /100 WBCS (0.0-0.0); Platelet Count 299 X 10*3/uL (140-440); RBC 3.87 X 10*6/uL (4.10-5.20); RDW 13.6 % (11.5-14.5); WBC 8.67 X 10*3/uL (4.50-10.00)
[2022-08-16 23:23] LABS: ALT 28 U/L (8-44); AST 22 U/L (13-35); Albumin 4.4 g/dL (3.8-4.9); Albumin/Globulin Ratio 1.61 (1.60-3.17); Alkaline Phosphatase 95 U/L (41-126); BUN/Creat Ratio 20.43 Ratio (12.00-20.00); Blood Urea Nitrogen 16.1 mg/dL (9.0-27.0); Calcium 9.6 mg/dL (8.7-10.3); Carbon Dioxide 27.8 mmol/L (20.0-27.5); Chloride 104 mmol/L (96-109); Globulin 2.7 g/dL (1.6-3.3); Glucose 98 mg/dL (70-110); Non-African American GFR(CKD) 84.5 (60.0-200.0); Potassium 4.5 mmol/L (3.5-5.5); Sodium 141 mmol/L (135-145); Total Bilirubin <0.15 mg/dL (0.30-1.20); Total Protein 7.1 g/dL (6.2-8.2)
== END | disposition home or self-care (01) ==
LOC: LABWHC1 16:14
PROVIDERS: ATTEND Podiatrist Foot & Ankle Surgery
DX: Z01.812 Encounter for preprocedural laboratory examination (principal)
CPT/HCPCS: 36415; 80053; 85027

== ENCOUNTER 2022-09-13 12:39 | Day surgery (SDC) | payer OTHER ==
[~2022-09-13 12:39] MED LIST changes: +DEXAMETHASONE SOD PHOSPHATE 4 MG/ML 1 ML VIAL IV ONE; +HYDROmorphone 0.5 MG/0.5 ML SYRINGE IVP PRN; +LIDOCAINE 1% (10MG/ML) FOR IV START INTRADERMA PRN; -LIDOCAINE 1% 20 ML VIAL (10MG/ML) FOR IV START INTRADERMA PRN; -LIDOCAINE 1% INJ 10MG/ML (20 ML MDV) ONE; +ONDANSETRON 4 MG/2 ML VIAL IVP ONE; -PROPOFOL 10 MG/ML 20 ML VIAL IV ONE; +Pre Op ABX Message 1 EACH MISC MISCELLANE ONE
[2022-09-13 13:01] VITALS: TEMP 97.9
[2022-09-13] MEDS ORDERED: BUPIVACAINE (PF) 0.5% 30 ML VIAL INTRAARTIC ONE (13:59)
[2022-09-13] MEDS ORDERED: fentaNYL (PF) 50 MCG/ML 2 ML AMP ONE (14:01)
[2022-09-13] MEDS ORDERED: MIDAZOLAM 2 MG/2 ML VIAL ONE (14:01)
[2022-09-13] MEDS ORDERED: PROPOFOL 10 MG/ML 20 ML VIAL IV ONE (14:01)
[2022-09-13] MEDS ORDERED: LIDOCAINE 2% INJ 20 MG/ML (2 ML VIAL) ONE (14:01)
[2022-09-13] MEDS ORDERED: SODIUM CHLORIDE 0.9% 100 ML with ceFAZolin 2,000 MG IV ONE ×2 (14:11)
[2022-09-13] MEDS ORDERED: LACTATED RINGERS 1,000 ML IV ONE (15:19)
--- NOTE | 2022-09-13 15:46 | P.OP ---
Date of Procedure: 09/13/22 Preoperative Diagnosis: Hallux abductovalgus deformity left foot Postoperative Diagnosis: Same Procedure(s) Performed: Tylor Jaron bunionectomy left foot Anesthesia: MAC Surgeon: Torey Kaufman Description of Procedure: On the date of surgery the patient was taken to the operating table supine where an IV was started and adequate IV anesthetic agents were utilized, anesthesia was then further supplemented with approximately 12 mL of 0.25 plain Marcaine given in a Henning type block to the patient's left foot. The patient's left foot was then prepped and draped in usual aseptic manner and over heavy web roll padding an ankle tourniquet was placed above the malleoli of the patient's left ankle the patient's left foot and ankle were then elevated and exsanguinated of blood and after approximately 5 seconds the ankle tourniquet was inflated to 250 mmHg At this time attention was directed to the dorsal aspect of the first metatarsal phalangeal joint where an approximately 6.5 cm dorsal linear incision was made. The incision was deepened via sharp dissection down through the level of the subcutaneous tissue layers, all neurovascular structures encountered were identified isolated and were retracted and any bleeding vessels cauterized dissection was then carried deep down to level a Parosteal Structures Overlying the First Metatarsal Phalangeal Joint. These Were Incised Utilizing an Inverted L Incision and They Were Underscored and Retracted from the Underlying Bone Utilizing Oscillating Bone Saw the Hyperostosis Present on the Medial Side of the First Metatarsal Head Was Then Resected Flush in Line with the Shaft of the First Metatarsal and Removed in Total from the Surgical Site. The Oscillating Bone Saw Was Then Used To Create an Osteotomy Which Was a Wedge Osteotomy and Angled Approximately 60 at the Level of the Distal Metaphysis of the First Metatarsal upon Completion of This Osteotomy Where the Seth of the Osteotomy Was Directed Distally the Capital Fragment of the First Metatarsal Head Was Then Shifted Laterally by Approximately 3-4 Mm It Was Impacted Back upon the Freddie Created by the Osteotomy Itself. An Fixated with 2 Crossing 0.062 K Wires. Inch Was Directed Then at This Time to the Lateral Side of the First Metatarsal Phalangeal Joint Where a Lateral Capsulotomy Procedure Was Performed. Parosteal Structures Overlying the Proximal Phalanx Were Incised in Line with the Original Skin Incision and Underscored and Retracted from the Underlying Bone and a Wedge Osteotomy Was Performed and a Dorsal to Plantar Manner the Seth of the Wedge Was Directed Laterally to the Wedge Was Directed Medially the Encompass Wedge of Bone Was Then Removed in Total from the Surgical Site at Its Widest Point at the Base of the Medial Side That Has the Osteotomy Measured Approximately 2 Mm It Was Fixated with 0.045 K Wire. Her out the Surgical Procedure Copious Amounts Sterile Saline Solution Was Used To Irrigate the Surgical Site. Attention Was Directed to the Medial Side of the First Metatarsal Phalangeal Joint Were Redundant Capsule Was Resected. Parosteal Structures Then Coaptated and Maintained Utilizing Combination of 201 3-0 Vicryl Simple Interrupted Suture and the Subcutaneous Tissues Were Coaptated and Maintained Utilizing 3-0 Vicryl Simple Interrupted Suture Skin Was Then Coaptated and Maintained Utilizing 4-0 Nylon Simple on Completion of These Procedures the Hallux Was Seen to Maintain a Rectus Position and Range Of Motion of the First Metatarsal Phalangeal Joint Was Completely within Normal Limits. Surgical Site Was Then Covered with Adaptic Kerlix Fluffs Four-Inch Conformer and 4 Inch Coban and the Ankle Tourniquet to the Patient's Left Ankle Was Deflated Adequate Hemostatic Return Was Seen in All Digits the Patient's Leg the Left Hallux. The Patient Tolerated the Surgery and Anesthesia Well Was Taken to the Recovery Room in Good Postoperative Condition
[2022-09-13 15:52] VITALS: PULSE 80; RESP 16
[2022-09-13] MEDS ORDERED: traMADol 50 MG TAB ONE (16:02)
[2022-09-13] MEDS ORDERED: traMADol 50 MG TAB PO ONE (16:03)
[2022-09-13 16:19] VITALS: BP 113/76
== END 2022-09-13 16:49 | disposition home or self-care (01) ==
LOC: OR 12:39
PROVIDERS: ATTEND Podiatrist Foot & Ankle Surgery
DX: M20.12 Hallux valgus (acquired), left foot (principal); F17.210 Nicotine dependence, cigarettes, uncomplicated; Z88.6 Allergy status to analgesic agent; Z88.8 Allergy status to other drugs, medicaments and biological substances
CPT/HCPCS: 28299; C1713 ×2; J2250; J1100; J2405; J0690; J3010; J2704; J2001

== ENCOUNTER → 2022-11-16 | Outpatient (CLI) | payer OTHER ==
--- NOTE | 2022-11-16 12:50 | MM ---
Reason for Exam: Screening (asymptomatic). Last mammogram was performed 4 year(s) and 3 month(s) ago. Patient History: Menarche at age 17. First Full-Term at age 21. Postmenopausal. Hormonal Contraceptives for 6 months from age 20 until age 20. Mother had breast cancer, age 55. Risk Values: Debra 5 year model risk: 2.0%. NCI Lifetime model risk: 13.5%. Prior Study Comparison: 08/21/2018 Bilateral Screening Mammogram, [facility]. 08/21/2018 Left Diagnostic Mammogram, [facility]. Tissue Density: There are scattered fibroglandular densities. Findings: Analyzed By CAD. Stable single benign appearing round calcification in the right breast. There is no suspicious new group of microcalcifications or new suspicious mass in either breast. Overall Assessment: Benign, BI-RAD 2 Management: Screening Mammogram of both breasts in 1 year. A clinical breast exam by your physician is recommended on an annual basis and results should be correlated with mammographic findings. Electronically signed and approved by: Dash Hays M.D.
== END | disposition home or self-care (01) ==
LOC: RADMAMWWP 09:08
PROVIDERS: ATTEND Family Medicine
DX: Z12.31 Encounter for screening mammogram for malignant neoplasm of breast (principal); Z78.0 Asymptomatic menopausal state; Z80.3 Family history of malignant neoplasm of breast
CPT/HCPCS: 77067

== ENCOUNTER → 2023-01-02 | Outpatient (CLI) | payer BC ==
[2023-01-02 18:39] LABS: Basophils # (A) 0.06 X 10*3/uL (0.00-0.10); Basophils % (A) 0.8 %; Eosinophils # (A) 0.22 X 10*3/uL (0.04-0.35); Eosinophils % (A) 2.9 %; HCT 40.2 % (37.2-46.3); HGB 12.7 g/dL (12.0-15.0); Immature Grans, Automated 0.3 %; Lymphocytes # (A) 1.85 X 10*3/uL (0.90-5.00); Lymphocytes % (A) 24.6 %; MCH 32.6 pg (27.0-32.0); MCHC 31.6 g/dL (32.0-37.0); MCV 103.3 fL (80.0-97.0); Mean Platelet Volume 10.1 fL (9.5-12.2); Monocytes # (A) 0.71 X 10*3/uL (0.20-1.00); Monocytes % (A) 9.5 %; NRBC Per 100 WBC 0 /100 WBCS (0.0-0.0); Neutrophils # (A) 4.65 X 10*3/uL (1.80-7.70); Neutrophils % (A) 61.9 %; Platelet Count 286 X 10*3/uL (140-440); RBC 3.89 X 10*6/uL (4.10-5.20); RDW 12.8 % (11.5-14.5); WBC 7.51 X 10*3/uL (4.50-10.00)
[2023-01-02 20:40] LABS: ALT 25 U/L (8-44); AST 20 U/L (13-35); African American GFR (CKD) 115.3 (60.0-200.0); Albumin 4.2 g/dL (3.8-4.9); Albumin/Globulin Ratio 1.52 (1.60-3.17); Alkaline Phosphatase 117 U/L (41-126); BUN/Creat Ratio 17.91 Ratio (12.00-20.00); Blood Urea Nitrogen 11.8 mg/dL (9.0-27.0); Calcium 9.5 mg/dL (8.7-10.3); Chloride 106 mmol/L (96-109); Chol/HDL Ratio 5.56 Ratio; Globulin 2.7 g/dL (1.6-3.3); Glucose 107 mg/dL (70-110); Non-African American GFR(CKD) 99.5 (60.0-200.0); Potassium 4.4 mmol/L (3.5-5.5); Sodium 144 mmol/L (135-145); Total Bilirubin <0.15 mg/dL (0.30-1.20); Total Protein 6.9 g/dL (6.2-8.2)
== END | disposition home or self-care (01) ==
LOC: LABWHC1 13:25
PROVIDERS: ATTEND Nurse Practitioner Family
DX: Z13.1 Encounter for screening for diabetes mellitus (principal); Z13.29 Encounter for screening for other suspected endocrine disorder; Z13.0 Encounter for screening for diseases of the blood and blood-forming organs and certain disorders involving the immune mechanism; E55.9 Vitamin D deficiency, unspecified
CPT/HCPCS: 36415; 80053; 80061; 82306; 83036; 84443; 85025

== ENCOUNTER → 2023-01-02 | Outpatient (CLI) | payer BC ==
--- NOTE | 2023-01-03 09:05 | CA ---
Transthoracic Echo Report Name: Talia Malave Age: 57 Gender: F : 1965 Exam Date: 01/02/2023 15:34 Exam Location: [place] [facility] Ht (in): 65 Wt (lb): 218 Ordering Physician: Tena Greenberg MD Attending/Referring Phys: Kofi Wheeler [facility] It Technical Architect Michelle Valdivia RDCS Procedure CPT: Indications: Z86.79 Cardiac Hx: smoker Technical Quality: Fair Contrast 1: Total Dose (mL): Contrast 2: Total Dose (mL): MEASUREMENTS (Male / Female) Normal Values 2D ECHO LV Diastolic Diameter PLAX 4.5 cm 4.2 - 5.9 / 3.9 - 5.3 cm LV Systolic Diameter PLAX 2.9 cm IVS Diastolic Thickness 1.1 cm 0.6 - 1.0 / 0.6 - 0.9 cm LVPW Diastolic Thickness 1.1 cm 0.6 - 1.0 / 0.6 - 0.9 cm LV Relative Wall Thickness 0.5 RV Internal Dim ED PLAX 2.6 cm LA Systolic Diameter LX 3.0 cm 3.0 - 4.0 / 2.7 - 3.8 cm LV Diastolic Volume MOD 4C 89.3 cm??? LV Systolic Volume MOD 4C 51.6 cm??? LV Ejection Fraction MOD 4C 42.2 % LV Diastolic Length 4C 7.6 cm LV Systolic Length 4C 6.0 cm LV Diastolic Volume MOD 2C 55.4 cm??? LV Systolic Volume MOD 2C 22.9 cm??? LV Ejection Fraction MOD 2C 58.8 % LV Diastolic Length 2C 6.8 cm LV Systolic Length 2C 5.3 cm LA Volume 38.6 cm??? 18 - 58 / 22 - 52 cm??? M-MODE Aortic Root Diameter MM 3.2 cm MV E Point Septal Separation 0.3 cm AV Cusp Separation MM 2.3 cm DOPPLER AV Peak Velocity 118.0 cm/s AV Peak Gradient 5.6 mmHg MV Area PHT 3.7 cm??? Mitral E Point Velocity 71.8 cm/s Mitral A Point Velocity 76.6 cm/s Mitral E to A Ratio 0.9 MV Deceleration Time 206.4 ms MV E' Velocity 8.5 cm/s Mitral E to MV E' Ratio 8.4 FINDINGS Left Ventricle Left ventricular ejection fraction is estimated at 55-60 %. Left ventricular cavity size normal. Borderline left ventricular hypertrophy. No obvious regional wall motion abnormalities. Right Ventricle Normal right ventricular size and function. No TR Right Atrium Normal right atrial size. Left Atrium Normal left atrial size. Mitral Valve Structurally normal mitral valve. No mitral stenosis, regurgitation or prolapse. Aortic Valve Trileaflet aortic valve. No aortic valve stenosis or regurgitation. Tricuspid Valve Structurally normal tricuspid valve. Pulmonic Valve Pulmonic valve not well visualized. Pericardium Normal pericardium. No pericardial effusion. Aorta Normal size aortic root and proximal ascending aorta. CONCLUSIONS Normal LV systolic function. Borderline concentric LVH Normal RV dimension and systolic function Overall normal intracardiac valves No evidence of pericardial effusion Previewed by: Dr. Luis Eduardo Davis MD (Electronically Signed) Final Date: 03 January 2023 09:04
== END | disposition home or self-care (01) ==
LOC: RADECHMAIN 15:20
PROVIDERS: ATTEND Family Medicine
DX: Z86.79 Personal history of other diseases of the circulatory system (principal); Z87.891 Personal history of nicotine dependence
CPT/HCPCS: 93306

== ENCOUNTER → 2024-09-12 | Outpatient (CLI) | payer BC ==
--- NOTE | 2024-09-12 13:32 | XR ---
EXAMINATION TYPE: XR KUB DATE OF EXAM: 09/12/2024 COMPARISON: CT abdomen and pelvis 07/14/2018 HISTORY: Abdominal pain, bilateral flank pain TECHNIQUE: Single supine KUB image of the abdomen is obtained FINDINGS: Small bowel demonstrates no evidence for dilatation or air fluid levels. Gas and fecal material is seen in non-distended colon. No convincing evidence for pneumoperitoneum. There are 2 right renal 6 mm calculi identified with largest measuring up to 6 mm. Bilateral pelvic phleboliths appear stable when compared to prior CT. The lung bases are clear. The osseous structures are intact. IMPRESSION: 1. Overall nonobstructive bowel gas pattern. 2. Couple of right renal calculi measuring up to 6 mm. Consider further evaluation with CT abdomen p naa if there is continued clinical concern. [facility], , 09/12/2024 1:30 PM
== END | disposition home or self-care (01) ==
LOC: RADXRMAIN 13:12
PROVIDERS: ATTEND Family Medicine
DX: N20.0 Calculus of kidney (principal)
CPT/HCPCS: 74018

== ENCOUNTER → 2024-09-29 | Outpatient (CLI) | payer BC ==
--- NOTE | 2024-09-29 12:39 | CT ---
EXAMINATION TYPE: CT urogram wo/w con CT DLP: 3782 mGycm, Automated exposure control for dose reduction was used. DATE OF EXAM: 09/29/2024 11:36 AM COMPARISON: CT abdomen pelvis 07/14/2018, KUB radiograph 09/12/2024 CLINICAL INDICATION:Female, 59 years old with history of N20.0 calculus; PHH, KIDNEY CALCULUS TECHNIQUE: Urogram of the abdomen and pelvis was performed before and after the administration of 100 cc of IV c ontrast Isovue 300 contrast. Delayed imaging was performed. Coronal and sagittal reformats were perfo rmed. One or more CT dose reduction strategies were utilized during this examination. 2D and 3D recon structions are performed to assist visualization of the urinary tract on a separate workstation. FINDINGS: GENITOURINARY: RIGHT KIDNEY AND URETER: Mild right hydroureteronephrosis with an obstructive 6 mm calculus within th e proximal right ureter just past the ureteropelvic junction. Mild periureteral fat stranding. Nonobs tructive right renal lower pole 3 mm calculus. No renal mass or other lesions. On the delayed phase c ontrast reaches the calculus within the ureter. However no contrast is demonstrated beyond this point which limits evaluation of the remaining portion of the ureter. There is a 3 mm filling defect ident ified within the proximal right ureter just before the obstructing calculus (series 17, image 325). LEFT KIDNEY AND URETER: No calculi. No hydronephrosis or hydroureter. No renal mass or other lesions. The distal portion of the left ureter is not well-opacified on delayed imaging. No urothelial lesion s involving the visualized portion: no filling defect, dilation, stricture or wall thickening. URINARY BLADDER: Not optimally distended. Only a small amount of contrast is demonstrated within the urinary bladder on delayed phase. No calculi identified. No mass or other lesions identified within t he opacified portion. REPRODUCTIVE: Unremarkable. ABDOMEN LIVER: Unremarkable. GALLBLADDER AND BILE DUCTS: Contracted gallbladder. No biliary duct dilatation. PANCREAS: Unremarkable. SPLEEN: Unremarkable. ADRENAL GLANDS: Unremarkable. STOMACH AND BOWEL: Unremarkable. The appendix is within normal limits. No evidence of bowel obstructi on. PERITONEUM: No evidence of pneumoperitoneum, free fluid, or adenopathy. VASCULATURE: Atherosclerotic calcifications are present throughout the abdominal aorta and its branch es. No abdominal aortic aneurysm. Couple pelvic phleboliths. MUSCULOSKELETAL: No acute osseous abnormalities. Degenerative changes at L5-S1. SOFT TISSUE/ABDOMINAL WALL: Unremarkable. LOWER CHEST: No significant findings. IMPRESSION: 1. Mild right hydroureteronephrosis with an obstructing 6 mm calculus within the proximal right urete r. Additional nonobstructive right renal lower pole 3 mm calculus. 2. No suspicious renal lesion. Poor evaluation of the mid/distal right ureter and distal left ureter with lack of opacification. There is a filling defect identified within the proximal right ureter jus t before the obstructing calculus. Possibly represents blood product in the setting of obstructing ca lculus versus other etiologies. Consider repeat exam after passage of calculus versus direct visualiz ation. [facility], , 09/29/2024 12:37 PM
== END | disposition home or self-care (01) ==
LOC: RADCTMAIN 10:02
PROVIDERS: ATTEND Urology
DX: N13.2 Hydronephrosis with renal and ureteral calculous obstruction (principal)
CPT/HCPCS: 74178; 74400; Q9967

== ENCOUNTER → 2024-10-06 | Outpatient (CLI) | payer BC ==
--- NOTE | 2024-10-06 08:42 | XR ---
EXAMINATION TYPE: XR KUB DATE OF EXAM: 10/06/2024 7:51 AM COMPARISON: 09/12/2024 CLINICAL INDICATION: Female, 59 years old with bilateral flank pain, today questioning right renal st one, history of N20.1 calculus, , FINDINGS: There is a 6 mm calcification which is now located at the right paramedian mid to lower abdomen, prog ressed from the right kidney. Calcifications in the pelvis are unchanged, probably phleboliths. Nonob structive bowel gas pattern. No significant stool burden. IMPRESSION: 6 mm stone appears to have progressed into the mid right ureter. [facility], , 10/06/2024 8:40 AM
== END | disposition home or self-care (01) ==
LOC: RADXRMAIN 07:34
PROVIDERS: ATTEND Urology
DX: N20.1 Calculus of ureter (principal)
CPT/HCPCS: 74018

== ENCOUNTER 2024-10-09 11:35 | Day surgery (SDC) | payer BC ==
[2024-10-06 14:08] VITALS: BMI 34.1
--- NOTE | 2024-10-08 07:04 | P.GSHP ---
History of Present Illness H&P Date: 10/08/24 59 yo female who comes for removal of a right ureteral stone, mid, 6mm. the patient originally presented with hematuria. A ct scan identified the stone with hydro and a small reight llp stone. The patient thought she passed it but a fu kub last week idntified the stone still in the mid ureter of the right. SHe was given treatment options and wants the stone out given the hydronephrosisand pain.. The patient is afebrile. SHe is having intermittent colic. - Constitutional Constitutional: Denies chills, Denies fever - EENT Eyes: denies blurred vision, denies pain Ears, nose, mouth and throat: Denies headache, Denies sore throat - Cardiovascular Cardiovascular: Denies chest pain, Denies shortness of breath - Respiratory Respiratory: Denies cough, Denies 7 - Gastrointestinal Gastrointestinal: Denies abdominal pain, Denies diarrhea, Denies nausea, Denies vomiting - Genitourinary (Female) Genitourinary: Denies dysuria, Denies hematuria - Genitourinary (Male) Genitourinary: Denies dysuria, Denies hematuria - Musculoskeletal Musculoskeletal: Denies myalgias - Integumentary Integumentary: Denies pruritus, Denies rash - Neurological Neurological: Denies numbness, Denies weakness - Psychiatric Psychiatric: Denies anxiety, Denies depression - Endocrine Endocrine: Denies fatigue, Denies weight change Past Medical History Past Medical History: Hypertension Additional Past Medical History / Comment(s): Current kidney stones. Migraines. History of Any Multi-Drug Resistant Organisms: None Reported Past Surgical History: Section, Orthopedic Surgery Additional Past Surgical History / Comment(s): Teeth extraction, left foot bunionectomy. Past Anesthesia/Blood Transfusion Reactions: No Reported Reaction Additional Past Anesthesia/Blood Transfusion Reaction / Comment(s): Dizziness. Smoking Status: Current every day smoker - Past Family History Father Family Medical History: Cancer Mother Family Medical History: Cancer Medications and Allergies Home Medications Medication Instructions Recorded Confirmed Type No Known Home Medications 09/11/22 09/13/22 History Allergies Allergy/AdvReac Type Severity Reaction Status Date / Time acetaminophen [From Vicodin] Allergy Itching Verified 10/06/24 13:51 hydrocodone [From Vicodin] Allergy Itching Verified 10/06/24 13:51 Surgical - Exam - General well developed, well nourished, no distress - Eyes normal ocular movement, no icteric - ENT no hearing loss, no congestion - Neck no masses, trachea midline - Respiratory normal respiratory effort, clear to auscultation - Abdomen Abdomen: soft, non tender, no guarding, no rigid, no rebound - Integumentary no rash, no abnormal pigmentation - Neurologic no disoriented, no combative - Psychiatric oriented to time, oriented to person, oriented to place, speech is normal, memory intact Results - Imaging Abdominal x-ray: report reviewed, image reviewed CT scan - abdomen: report reviewed, image reviewed CT scan - pelvis: report reviewed, image reviewed Assessment and Plan Assessment: Impression : right ureteral stone with hydronephrosis and colic. Plan: right ureteroscopy with laser lithotripsy
[~2024-10-09 11:35] MED LIST changes: -DEXAMETHASONE SOD PHOSPHATE 4 MG/ML 1 ML VIAL IV ONE; -HYDROmorphone 0.5 MG/0.5 ML SYRINGE IVP PRN; -LACTATED RINGERS 1,000 ML IV SCH; -ONDANSETRON 4 MG/2 ML VIAL IVP ONE; -Pre Op ABX Message 1 EACH MISC MISCELLANE ONE
--- NOTE | 2024-10-09 12:06 | XR ---
KUB. HISTORY: Right ureteral calculus COMPARISON: 10/06/2024 TECHNIQUE: Single supine view the abdomen. FINDINGS: The bowel gas pattern is nonspecific and there is no evidence of obstruction. There is no change in the 7 mm mid right ureteral calculus at the level of L4. There are stable phleb oliths in the pelvis. The osseous structures are intact. IMPRESSION: 1. Stable 7 mm mid right ureteral calculus. 2. Nonspecific bowel gas pattern. [facility], , 10/09/2024 12:03 PM
[2024-10-09] MEDS: DEXAMETHASONE SOD PHOSPHATE 4 MG/ML 1 ML VIAL IV ONE (12:45)
[2024-10-09] MEDS: ONDANSETRON 4 MG/2 ML VIAL IVP ONE (12:45)
[2024-10-09] MEDS: LACTATED RINGERS 1,000 ML IV SCH (12:47)
[2024-10-09] MEDS: IV FLUID CONTINUATION 1,000 ML IV ONE (12:55)
[2024-10-09 13:02] LABS: HGB 12.4 gm/dL (11.4-16.0); MCH 33.1 pg (25.0-35.0); MCHC 33.4 g/dL (31.0-37.0); MCV 99.2 fL (80.0-100.0); Mean Platelet Volume 7.4; Platelet Count 334 k/uL (150-450); RBC 3.74 m/uL (3.80-5.40); RDW 12.5 % (11.5-15.5); WBC 9.2 k/uL (3.8-10.6)
[2024-10-09 13:10] LABS: African American GFR (CKD) 67 (>60 ml/min/1.73 sqM); Anion Gap 7 mmol/L; Blood Urea Nitrogen 15 mg/dL (7-17); Calcium 9.7 mg/dL (8.4-10.2); Carbon Dioxide 27 mmol/L (22-30); Chloride 106 mmol/L (98-107); Glucose 100 mg/dL (74-99); Non-African American GFR(CKD) 58 (>60 ml/min/1.73 sqM); Potassium 4.1 mmol/L (3.5-5.1); Sodium 140 mmol/L (137-145)
[2024-10-09] MEDS ORDERED: MIDAZOLAM 2 MG/2 ML VIAL ONE (13:10)
[2024-10-09] MEDS ORDERED: KETOROLAC 15 MG/ML 1 ML VIAL ONE (13:10)
[2024-10-09] MEDS ORDERED: PROPOFOL 10 MG/ML 20 ML VIAL IV ONE (13:10)
[2024-10-09] MEDS ORDERED: LIDOCAINE 1% INJ 10MG/ML (20 ML MDV) ONE (13:10)
[2024-10-09] MEDS ORDERED: SUCCINYLCHOLINE CHLORIDE 200 MG/10 ML VIAL IV ONE (13:10)
[2024-10-09 13:13] LABS: Appearance,Urine Clear (Clear); Bacteria,Urine Rare /hpf; Bilirubin,Urine Negative (Negative); Blood,Urine Negative (Negative); Color,Urine Colorless; Glucose,Urine (UA) Negative (Negative); Hyaline Casts,Urine 1 /lpf (0-2); Ketones,Urine Negative (Negative); Leukocyte Esterase,Urine Small (Negative); Mucus,Urine Rare /hpf; Nitrite,Urine Negative (Negative); Protein,Urine Negative (Negative); RBC,Urine 2 /hpf (0-5); Specific Gravity,Urine 1.021 (1.001-1.035); Squamous Epithelial Cell,Urine 4 /hpf (0-4); Urobilinogen,Urine <2.0 mg/dL (<2.0); WBC,Urine 10 /hpf (0-5)
--- NOTE | 2024-10-09 14:01 | P.OP ---
Date of Procedure: 10/09/24 Preoperative Diagnosis: right ureteral calculus Postoperative Diagnosis: same Procedure(s) Performed: cystoscopy with right ureteroscopy laser lithotripsy placement of 6 x 24 double- J catheter Anesthesia: BENY Surgeon: Torey Guillermo Estimated Blood Loss (ml): 0 Pathology: other Condition: stable (stone) Disposition: PACU Indications for Procedure: patient is 59. She has a 7/8 mm midureteral stone. It has not moved and she has had intermittent colic. She comes for right ureteroscopy and laser lithotripsy Description of Procedure: issue brought to the operative suite and given a general anesthetic. Placed lithotomy position with sterile prep and drape. Cystoscopy identifies a normal bladder. The ureteral orifices are normal. An 035 wires passed up the right ureter by the stone. I cannot advance ureteroscope alongside the wire. The wires removed. At pass a semirigid scope up the right ureter to just above the iliac vessels but the ureter is too tight to advance it proximally.. I thus removed the ureteroscope and pass a 035 wire back up the ureter. Over the wires passed the [id number] reentry sheath. The inner sheath is removed and I passed the flexible ureteroscope up to the stone. It migrates proximal into the renal pelvis. Advance ureteroscope up into the renal pelvis. I use the 272 laser probe break the stones into tiny fragments. The largest is basketed and sent to pathology. I looked throughout the collecting system and do not see any remaining stones. There is a fair amount of edema in the ureter where the stone enlarged thus a stent will be placed.. Through the ureteroscope and 035 wires passed up into the right renal pelvis. I move the ureteroscope. Over the wires passed a 6 x 24 double-J catheter that coils in the right renal pelvis and in the bladder.The bladder is drained the patient is awakened and returned recovery room in good condition. She tolerated the procedure well be discharged home upon recovery and follow in the office in one week for stent removal.
--- NOTE | 2024-10-09 14:06 | FL ---
Intraoperative/procedural fluoroscopic services were provided for right cystoscopy with lithotripsy. Ureteral stent was placed. Total fluoroscopy time is 1.04 minutes with a total of 10 submitted images to PACS. Total DAP 9.0547 Gycm2. Please see the operative note for further details. [facility], , 10/09/2024 2:04 PM
[2024-10-09 14:07] VITALS: TEMP 97.6
[2024-10-09] MEDS: HYDROmorphone 0.5 MG/0.5 ML SYRINGE IVP PRN (14:22)
[2024-10-09] MEDS: droPERidol 5 MG/2 ML VIAL IVP PRN (14:22)
[2024-10-09 14:53] VITALS: RESP 18
[2024-10-09 15:22] VITALS: BP 135/80; PULSE 65
== END 2024-10-09 15:41 | disposition home or self-care (01) ==
LOC: OR 11:35
PROVIDERS: ATTEND Urology
DX: N13.2 Hydronephrosis with renal and ureteral calculous obstruction (principal); I10 Essential (primary) hypertension; J44.9 Chronic obstructive pulmonary disease, unspecified; G43.909 Migraine, unspecified, not intractable, without status migrainosus; F17.210 Nicotine dependence, cigarettes, uncomplicated; F12.90 Cannabis use, unspecified, uncomplicated; Z88.5 Allergy status to narcotic agent; Z79.51 Long term (current) use of inhaled steroids; Z79.899 Other long term (current) drug therapy
CPT/HCPCS: 52356; 80048; 85027; 81001; 82365; 74018; C2625; C1769; J2250; J0330; J1100; J0690; J2405; J2003; J1885; J2704; J1171; J1790